=== PATIENT | male | born 1980 | race African-American/Black ===

== ENCOUNTER 2019-01-10 09:14 | Emergency (ER) | payer SELFPAY ==
--- NOTE | 2019-01-10 10:03 | ER Document Report ---
ED Medical Screen (RME) - General Chief Complaint: Laceration Stated Complaint: FALL/ELBOW PAIN Time Seen by Provider: 01/10/19 09:57 Primary Care Provider: SONDRA IBARRA [Primary Care Provider] - Follow up as needed Notes: Patient is a 38-year-old male who presents to the emergency department with a chief complaint of bilateral hand pain and right elbow injury. Patient reports this morning around 8 AM he was running downhill to catch his before she left when he lost his balance and fell forward. Patient reports falling on both hands and striking his right elbow on the concrete. Patient denies head injury or loss of consciousness. Patient reports abrasions and small lacerations to the palms of his hand and a large laceration to the right elbow. Patient denies use of blood thinners. Patient reports his tetanus shot is not up-to-date but that he does not want the tetanus shot. - Related Data Allergies/Adverse Reactions: No Known Allergies Allergy (Verified 01/10/19 09:24) Physical Exam - Vital signs Vitals: Temp Pulse Resp BP Pulse Ox 98.9 F 60 16 144/96 H 97 01/10/19 09:21 01/10/19 09:21 01/10/19 09:21 01/10/19 09:21 01/10/19 09:21 Course - Re-evaluation Re-evalutation: 01/10/19 10:02 Nurse in triage had just applied a wet-to-dry dressing on the wounds. We will leave these intact for the provider in the back to evaluate. I did discuss updating the patient's Tdap with him and the importance. Patient states he does not want the Tdap vaccine at this time. I have greeted and performed a rapid initial assessment of this patient. A comprehensive ED assessment and evaluation of the patient, analysis of test results and completion of the medical decision making process will be conducted by additional ED providers. - Vital Signs Vital signs: Temp Pulse Resp BP Pulse Ox 98.9 F 60 16 144/96 H 97 01/10/19 09:21 01/10/19 09:21 01/10/19 09:21 01/10/19 09:21 01/10/19 09:21 Doctor's Discharge - Discharge Referrals: SONDRA IBARRA [Primary Care Provider] - Follow up as needed
[2019-01-10] MEDS ORDERED: OXYCODONE-ACETAMINOPHEN 5-325 MG TABLET PO ONE (10:58)
[2019-01-10] MEDS ORDERED: LIDOCAINE 1%/EPINEPHRINE INJ 20 ML VIAL INJ ONE (11:00)
[2019-01-10] MEDS ORDERED: CEPHALEXIN 500 MG CAPSULE PO ONE (11:03)
--- NOTE | 2019-01-10 11:03 | ER Document Report ---
ED Wound - General Chief Complaint: Laceration Stated Complaint: FALL/ELBOW PAIN Time Seen by Provider: 01/10/19 09:57 Primary Care Provider: FRED,NO [Primary Care Provider] - Follow up as needed Notes: HPI: 38-year-old male who states this morning he was running after his to remind her of something when he excellently fell landing on his outstretched hands and right elbow. He states he did not hit his head. He states his tetanus is up-to-date. He denies a history of diabetes. ROS: See HPI All other review of systems reviewed and otherwise negative Reviewed vital signs and nursing note as charted by RN. PHYSICAL EXAM: CONSTITUTIONAL: Alert and oriented and responds appropriately to questions. Well-appearing; well-nourished HEAD: Normocephalic; atraumatic NECK: Supple without meningismus; non-tender CARD: Regular rate and rhythm; no murmurs; symmetric distal pulses RESP: Normal chest excursion without splinting or tachypnea; no anterior posterior rib pain BACK: The back appears normal and is non-tender to palpation EXT: Patient has bilateral avulsion-like abrasions to the palms of the hands. No tenderness to the palms of the wrist. No snuffbox tenderness bilaterally. Patient has an open laceration/abrasion to the right lateral elbow. It does not appear to involve the joint space itself SKIN: See above NEURO: CN 2-12 intact; 5/5 bilateral upper and lower extremity strength with sensation intact to light touch PSYCH: The patient's mood and manner are appropriate. Grooming and personal hygiene are appropriate. - Related Data Allergies/Adverse Reactions: No Known Allergies Allergy (Verified 01/10/19 09:24) Past Medical History - Social History Smoking Status: Current Every Day Smoker Family History: Reviewed & Not Pertinent Patient has suicidal ideation: No Patient has homicidal ideation: No Physical Exam - Vital signs Vitals: Temp Pulse Resp BP Pulse Ox 98.9 F 60 16 144/96 H 97 01/10/19 09:21 01/10/19 09:21 01/10/19 09:21 01/10/19 09:21 01/10/19 09:21 Course - Re-evaluation Re-evalutation: 01/10/19 11:02 Given the above history and physical, we will x-ray the right elbow. Both patient and myself do not believe that the patient is suffering a possibility of a fracture of the hands. The palm lesions appear to be more abrasions/avulsion injuries. I do not believe any suturing of the palms will be necessary. We will x-ray the patient's right elbow, anesthetize the area, and irrigate extensively. We will most likely provide suturing of the right elbow. 01/10/19 13:16 X-ray as recorded. Patient has no obvious fractures. We have anesthetized and irrigated the elbow laceration with suturing as recorded. I placed 2.0 Prolene. I do not believe horizontal vertical sutures are necessary at this moment. We have cleaned and dressed the patient's hands. I will give a work note until Saturday. Strict return precautions have been explained. Pain medications and antibiotics have been prescribed. - Vital Signs Vital signs: Temp Pulse Resp BP Pulse Ox 98.9 F 60 16 144/96 H 97 01/10/19 09:21 01/10/19 09:21 01/10/19 09:21 01/10/19 09:21 01/10/19 09:21 Procedures - Laceration/Wound Repair Right Elbow Wound length (cm): 3.5 Wound's Depth, Shape: Irregular Laceration pre-procedure: Chloraprep applied Anesthetic type: 1% Lidocaine w/epi Wound explored: Clean Wound Repaired With: Sutures Suture Size/Type: Prolene, Other - 2.0 Number of Sutures: 5 Post-procedure wound care: Sterile dressing applied Post-procedure NV exam normal: Yes Complications: No Discharge - Discharge Clinical Impression: Laceration of right elbow Qualifiers: Encounter type: initial encounter Qualified Code(s): S51.011A - Laceration without foreign body of right elbow, initial encounter Hand abrasion Qualifiers: Encounter type: initial encounter Laterality: right Qualified Code(s): S60.511A - Abrasion of right hand, initial encounter Accidental fall Qualifiers: Encounter type: initial encounter Qualified Code(s): W19.XXXA - Unspecified fall, initial encounter Condition: Good Disposition: HOME, SELF-CARE Instructions: Soap Cleansing ([facility]), Antibiotic Ointment Protection ([facility]), Laceration Care ([facility]) Additional Instructions: Come back immediately with any increased pain, swelling, fever, redness, drainage, or any other acute problems. Please follow-up with your primary doctor as discussed. Take the antibiotics as prescribed and pain medications as needed. Please apply bacitracin ointment to the wounds twice daily until healing. Return in 10 days for suture removal. Prescriptions: Cephalexin Monohydrate [Keflex 500 mg Capsule] 500 mg PO Q6H 5 Days #24 capsule Hydrocodone/Acetaminophen [Roosevelt 5-325 mg Tablet] 1 tab PO Q6H #12 tablet Forms: Return to Work Referrals: LOCALMD,NO [Primary Care Provider] - Follow up as needed
--- NOTE | 2019-01-10 11:39 | RADIOLOGY REPORT (SQ) ---
EXAM DESCRIPTION: ELBOW RIGHT OVER 2 VIEWS COMPLETED DATE/TIME: 01/10/2019 11:23 am REASON FOR STUDY: 42; fall COMPARISON: None. NUMBER OF VIEWS: Four views right elbow LIMITATIONS: None. FINDINGS: There is no acute or significant bone, joint or soft tissue abnormality. OTHER: No other significant finding. IMPRESSION: NORMAL STUDY. TECHNICAL DOCUMENTATION: JOB ID: [id number] Reading location - IP/workstation name: [email or web address]
[2019-01-10] MEDS ORDERED: BACITRACIN ZINC OINTMENT 15 GM TP ONE (13:21)
[2019-01-10 13:57] VITALS: BP 140/88
== END 2019-01-10 13:57 | disposition home or self-care (01) ==
LOC: ER 09:14
DX: S51.011A Laceration without foreign body of right elbow, initial encounter (principal); S60.512A Abrasion of left hand, initial encounter; S60.511A Abrasion of right hand, initial encounter; W10.2XXA Fall (on)(from) incline, initial encounter; Y93.02 Activity, running
CPT/HCPCS: 73080; 12002; J3490; 99283